=== PATIENT | male | born 1940 | race Caucasian/White ===

== ENCOUNTER → 2020-10-26 12:17 | Outpatient (CLI) | payer MEDICARE, BC, SELFPAY ==
--- NOTE | 2020-10-26 12:47 | DI.CT.S_ITS ---
PROCEDURE: CT LUMBAR SPINE WO CON INDICATIONS: Other spondylosis with radiculopathy TECHNIQUE: Noncontrast 3 mm thick sections acquired from the T12 level to the sacrum. Sagittal and coronal reformats were constructed. For radiation dose reduction, the following was used: automated exposure control. COMPARISON: None. FINDINGS: Image quality: Excellent. Bones: There is normal bony alignment. No acute vertebral body compression fractures. No suspicious lytic or blastic bony lesions. 1.9 centimeter probable bone island noted in the right iliac bone. No pars defects. T12-L1: Mild loss of disc height. Mild, diffuse disc bulge. Mild bilateral facet hypertrophy. Moderate narrowing of the central canal. Mild bilateral neural foraminal narrowing. No neural compression. L1-L2: Loss of disc height. Vacuum disc phenomenon. Mild to moderate diffuse disc bulge. Kutt-el-sybilaqd facet hypertrophy. Severe narrowing of the central canal. Severe bilateral neural foraminal narrowing with compression of the exiting L1 nerve roots. L2-L3: Loss of disc height. Moderate, diffuse disc bulge. Moderate facet hypertrophy. Severe narrowing of the central canal. Severe right and moderate left neural foraminal narrowing with compression of the exiting right L2 nerve root. L3-L4: Loss of disc height. Vacuum disc phenomenon. Moderate, diffuse disc bulge. Moderate bilateral facet hypertrophy. Severe narrowing of the central canal. Severe bilateral neural foraminal narrowing with compression of the exiting L3 nerve roots. L4-L5: Loss of disc height. Moderate, diffuse disc bulge. Mild bilateral facet hypertrophy. Moderate narrowing of the central canal. Severe bilateral neural foraminal narrowing with compression of the exiting L4 nerve roots. L5-S1: Loss of disc height. Mild, diffuse disc bulge. Mild bilateral facet hypertrophy. No central stenosis. Severe bilateral neural foraminal narrowing with compression of the exiting L5 nerve roots. Soft tissues: No retroperitoneal masses or hematomas. 3.9 centimeter infrarenal abdominal aortic aneurysm. Scattered atherosclerotic calcifications involving the visualized abdominal and pelvic vasculature. IMPRESSION: 1. Multilevel degenerative disc disease. 2. Multilevel facet arthropathy. 3. Severe L1-L2, L2-L3 and L3-L4 central canal narrowing. 4. Severe bilateral L1-L2, L3-L4, L4-L5 and L5-S1 neural foraminal narrowing. Severe right L2-L3 neural foraminal narrowing. 5. 3.9 centimeter infrarenal abdominal aortic aneurysm. Dictated by: Yaa Martinez MD, PhD on 10/26/2020 at 17:13 Approved by: Yaa Martinez MD, PhD on 10/26/2020 at 17:20
== END ==
PROVIDERS: PCP Orthopaedic Surgery Orthopaedic Surgery of the Spine; Referring Provider Orthopaedic Surgery Orthopaedic Surgery of the Spine; Visit Provider Orthopaedic Surgery Orthopaedic Surgery of the Spine
DX: M47.27 Other spondylosis with radiculopathy, lumbosacral region (principal); M47.26 Other spondylosis with radiculopathy, lumbar region; M51.17 Intervertebral disc disorders with radiculopathy, lumbosacral region; M51.16 Intervertebral disc disorders with radiculopathy, lumbar region; M48.07 Spinal stenosis, lumbosacral region; M48.061 Spinal stenosis, lumbar region without neurogenic claudication
CPT/HCPCS: 72131

== ENCOUNTER → 2021-09-26 12:38 | Outpatient (CLI) | payer MEDICARE, BC, SELFPAY ==
[2021-09-26 13:34] LABS: Add Manual Diff / Slide Review NO; Basophils Absolute Auto 0 /uL (0-100); Basophils Percent Auto 0.6 % (0-2); Eosinophils Absolute Auto 300 /uL (0-450); Eosinophils Percent Auto 4.7 % (2-4); Hematocrit 43.7 % (41-53); Hemoglobin 15.1 g/dL (13.5-17.5); Lymphocytes Absolute Auto 2100 /uL (1100-4500); Lymphocytes Percent Auto 34.8 % (25-40); Mean Corpuscular HGB Conc 34.6 % (30-36); Mean Corpuscular Hemoglobin 31.6 PG (26-34); Mean Corpuscular Volume 91.3 fL (80-100); Monocytes Absolute Auto 800 /uL (0-900); Monocytes Percent Auto 13.3 % (3-14); Neutrophils Absolute Auto 2800 /uL (1500-7000); Neutrophils Percent Auto 46.6 % (50-75); Platelet Count 208 X10^3/uL (150-400); Red Blood Cell Count 4.78 X10^6/uL (4.5-5.9); Red Cell Distribution Width 14.4 % (11.6-14.8); White Blood Cell Count 6.1 X10^3/uL (4.5-11.0)
[2021-09-26 13:41] LABS: BUN Creatinine Ratio 24.5 (6-22); Blood Urea Nitrogen 23 mg/dL (9-20); Calcium 8.7 mg/dL (8.4-10.2); Carbon Dioxide 24 mmol/L (22-32); Chloride 107 mmol/L (98-107); Estimated Glomerular Filt Rate > 60 mL/min (>60); Glucose 118 mg/dL (80-110); HEMOLYSIS < 15 (0-50); Potassium 4.6 mmol/L (3.4-5.1); Sodium 139 mmol/L (137-145)
== END ==
PROVIDERS: Referring Provider Orthopaedic Surgery Orthopaedic Surgery of the Spine; Visit Provider Orthopaedic Surgery Orthopaedic Surgery of the Spine
DX: Z01.818 Encounter for other preprocedural examination (principal); Z01.812 Encounter for preprocedural laboratory examination
CPT/HCPCS: 36415; 80048; 85025; 93005

== ENCOUNTER → 2021-10-04 12:24 | Outpatient (CLI) | payer MEDICARE, BC, SELFPAY ==
--- NOTE | 2021-10-04 | DI.CT.S_ITS ---
PROCEDURE: CT LUMBAR SPINE WO CON INDICATIONS: Spinal stenosis, lumbar region TECHNIQUE: Noncontrast 3 mm thick sections acquired from the T12 level to the sacrum. Sagittal and coronal reformats were constructed. For radiation dose reduction, the following was used: automated exposure control. COMPARISON: Located Within [facility], CT, CT LUMBAR SPINE WO CON, 10/26/2020, 12:35. FINDINGS: Image quality: Excellent. Bones: There is normal bony alignment. No acute vertebral body compression fractures. No suspicious lytic or blastic bony lesions. No pars defects. Multilevel degenerative endplate changes noted. L4-5 disc ankylosis or interbody fusion noted. T12-L1: Disc space narrowing with circumferential disc bulge and osteophytes resulting in moderate central stenosis. Moderate bilateral foraminal stenosis L1-L2: Disc space narrowing with circumferential disc bulge and hypertrophic facet joints combined with ligamentum flavum laxity to result in moderate central stenosis. Severe bilateral foraminal stenosis. L2-L3: Disc space narrowing with circumferential disc bulge, osteophytes and hypertrophic facet joints results in severe central and bilateral foraminal stenosis L3-L4: Disc space narrowing with circumferential disc bulge, hypertrophic facet joint osteophytes results in severe central stenosis. Severe bilateral foraminal stenosis L4-L5: Disc space narrowing with possible ankylosis present. Hypertrophic facet joints combined result in moderate central stenosis. Severe bilateral foraminal stenosis L5-S1: Disc space narrowing with circumferential disc bulge and hypertrophic facet joints results in moderate central stenosis. Severe bilateral foraminal stenosis. Soft tissues: No retroperitoneal masses or hematomas. Infrarenal abdominal aortic aneurysm now measures 4.1 cm in diameter IMPRESSION: 1. Multilevel degenerative disc disease and arthropathy results in varying degrees of central and foraminal stenosis including severe central and bilateral foraminal stenosis at L1-2, L2-3 and L3-4, similar prior 2. Infrarenal abdominal aortic aneurysm, slightly larger than the prior exam Approved by: Jeremy Hernandez M.D. on 10/04/2021 at 14:17
== END ==
PROVIDERS: Referring Provider Orthopaedic Surgery Orthopaedic Surgery of the Spine; Visit Provider Orthopaedic Surgery Orthopaedic Surgery of the Spine
DX: M48.061 Spinal stenosis, lumbar region without neurogenic claudication (principal); M51.36 Other intervertebral disc degeneration, lumbar region; M47.816 Spondylosis without myelopathy or radiculopathy, lumbar region; I71.4 Abdominal aortic aneurysm, without rupture
CPT/HCPCS: 72131

== ENCOUNTER 2022-07-23 05:50 | Inpatient (IN) | payer MEDICARE, OTHER, SELFPAY ==
[2022-07-16 08:07] VITALS: BMI 41.1
[2022-07-23] VITALS (26 sets, daily range): BP systolic 90–159; BP diastolic 49–82; PULSE 76–97; RESP 12–23; TEMP 36–36.9; O2SAT 92–98; BMI 41.1
[2022-07-23] MEDS: LACTATED RINGERS 1,000 ML 42 ML IV ×3 (07:12→12:42)
[2022-07-23] MEDS: PREGABALIN 75 MG CAPSULE PO (07:17)
[2022-07-23] MEDS: ACETAMINOPHEN IV 1,000 MG/100 ML VIAL 400 MG IV (07:17)
[2022-07-23 07:20] LABS: COVID19 - ADMIT (NP swab/PCR) Negative (Negative)
--- NOTE | 2022-07-23 07:46 | PM.OP.1 ---
Operative Date/Time/Diagnoses Date of procedure: 07/23/22 Time of procedure: 07:40 Pre-op diagnosis: 1. 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 Lumbar spondylosis with radiculopathy 3. Morbid obesity Post-op diagnosis: same Procedure & Clinicians Procedure: 1. L2-3, L3-4 Postero-lateral and posterior interbody fusion 2. L2-3, L3-4 interbody cage placement 3. L1-2, L2-3, L3-4 decompressive laminectomy with bilateral facetecomies 4. L1-2, L2-3, L3-4 Posterior segmental instrumentation 5. [place] of bone marrow from iliac crest 6. Utilization of microsurgical technique and operating microscope 7. Utilization of robotic assisted navigation Same procedure as scheduled: Yes Indications: Patient has been having chronic back pain and worsening lumbar radiculopathy and symptoms of neurogenic claudication. Patient failed multiple conservative management with worsening pain weakness and numbness in his lower extremity. Patient has been having difficulty performing activity of daily living. After discussing risks benefits of treatment options, patient elected proceed with surgery. Surgeon: Carmen Espino Arts Therapist: Horace Manzo Click Yes if Unassisted: No Anesthesia Type: General Operative Notes Closure Type: primary Specimen(s): none sent Prosthetic devices, grafts, tissues, transplants, or devices: Globus CREO MIS screws, Rise cages Applied: catheter Estimated Blood Loss (mL): 400 Blood products transfused: none Procedure in detail: Patient was seen in the preoperative area. Risks and benefits of the surgery was discussed with the patient. Informed consent was obtained from the patient and placed in the chart. Surgical site was marked. Patient was taken to the operative room. General anesthesia was administered. Prophylactic antibiotic was given to the patient less than 30 min before the incision was made. Patient was placed into a prone position on the Carlos table. Patient's back was then prepped and draped in the sterile fashion. Time-out was performed at this time. After patient was prepped and draped, patient's PSIS was palpated and marked bilaterally. Small 1 cm incision was made over the PSIS for placement of the reference probes. Two trocar was placed into the PSIS 1 on each side. The reference probe was attached to the trocar of the reference apparatus. At this time the C-arm imaging was used to confirm AP and lateral of L1, L2, L3, L4 vertebrae and merged the C-arm imaging using the [employer] robotic navigation system with the CT of the lumbar spine. After successful merging was completed and confirmed, skin marker was used to garrett out the skin incision using the [employer] robotic arm. Bilateral incision was made at this time. Pre templated trajectory was used and guided using the [employer] robotic navigation system for bilateral L1, L2, L3, L4 pedicle screw placement. This was done by using the robotic arm to guide the high-speed bur to make a cortical entry point. Next a drill was placed also using the robotic arm and guided using the navigation system drilling partially through bilateral L1, L2, L3, L4 pedicles. Next, L1, L2, L3, L4 pedicle screws it was pre templated and measured was placed onto the power non cdl driver and inserted into the pedicles bilaterally. After all 8 screws were placed C-arm imaging was taken of both AP and lateral to confirm the placement. Excellent placement of the screws were confirmed and a matched precisely with the pre planned screw placement using the navigation system. MARs retractor was inserted using [employer] guidence. Globus MARS retractors was placed inside the incision and docked onto the L1, L2, L3 lamina. Using microsurgical technique and operating microscope, a L1, L2, L3 laminectomy and L1-2, L2-3, L3-4 facetectomy was performed using a Kerrison rongeur. Patient was found have severe lateral recess and neural foramen stenosis which was fully decompressed after the laminectomy facetectomy. More than 75% of the facets were removed during the process of decompression rendering L1-2, L2-3, L3-4 level grossly unstable and required a fusion procedure at the same time. The disc space at L1-2, L2-3, L3-4 was identified, and a total diskectomy was performed at L2-3, L3-4 level. The endplates were decorticated using a rasp and shaver. The total diskectomy and decortication was performed at L2-3, L3-4 level in order to to accomplish a L2-3, L3-4 interbody fusion. The local bone from the laminectomy and facetectomy was saved for local bone grafting. After the total diskectomy and decortication was completed, Trifecta bone graft material was combined with local bone that was harvested earlier. At this time, a separate skin is incision was made over the iliac crest. A Jamshidi needle was inserted into the iliac crest through a separate skin incision. 5 cc of bone marrow aspiration was obtained through the separate skin incision using a Jamshidi needle from the iliac crest. The bone marrow aspiration was combined with local bone and the Trifecta bone grafting material. The bone grafting material was placed into the L2-3, L3-4 interbody space along with expandable cages. One cage each was inserted into the L2-3 L3-4 interbody space along with bone graft material. The cage was expanded to its maximum height using the torque limiting screwdriver. The disc preparation as well as the cage insertion were also performed under navigation guidance. After the cage was placed, AP and lateral C-arm imaging was taken to confirm placement of the cage and excellent position was confirmed. Globus MARS retractor was inserted and docked onto the L1-2, L2-3, L3-4 posterolateral gutter on the right side. Using the power drill, posterior-lateral decortication was performed at L1-2, L2-3, L3-4 level until bleeding cortical bone was identified. The remaining bone grafting material was placed into the L1-2, L2-3, L3-4 posterior lateral gutter he order to accomplish posterolateral fusion at the L1-2, L2-3, L3-4 level. At this time the tulips were attached to the L1, L2, L3, L4 pedicle screw shanks. After measuring the length of the rods, they were inserted into the tulips of the pedicle screws and locked in place using locking caps and torque limiting screwdriver bilaterally. Total 8 caps and 2 titanium rods was used in order to complete the posterior instrumentation construct. After all the hardware was placed, and confirmed with AP and lateral C-arm imaging, the wound was then irrigated with sterile normal saline and packed with Ray-Yonathan gauze for 3 min to accomplish hemostasis. After the gauze was removed the deep fascia was closed with #1 Vicryl suture. The subcutaneous layer was closed with 2-0 Vicryl. The skin was closed with skin crystal. Patient tolerated the procedure well. There were no complications. Neuro monitoring system was used to monitor patient's neurologic status throughout entire procedure. There was no disturbance of the neural monitoring signals throughout the case. Complications: none Post-operative Condition: stable Disposition: PACU Plan for aftercare: Admit to inpatient hospital
--- NOTE | 2022-07-23 07:46 | PM.PREOP ---
Pre-operative Note COVID-19 COVID-19 status: Negative Result date/Date tested (Pos, Neg/Pending): 07/22/22 Criteria for continued procedure: Expected advancement of disease process, Possibility delay results in more complex future surgery or treatment, Increased loss of function, Continuing or worsening of significant or severe pain, Deterioration of the patient's condition or overall health and Delay expected to result in less-positive ultimate med/surg outcome Interval Note History & Physical reviewed/Exam performed by Physician: Yes Changes to H&P: No
[2022-07-23] MEDS: CEFAZOLIN 2 GM/100 ML PREMIX 100 ML IV ×3 (07:51→20:03)
--- NOTE | 2022-07-23 08:32 | SUR.OPER ---
Prone on spine table, head in foam head support, padded chest and pelvic supports, gel pad at knees, lower legs supported by pillows; nipples, genitalia and toes free of pressure, arms secured on foam padded arm boards at <90 degrees abduction. Tape over blanket at thigh secured to table. Pt positioned per direction and supervision of Dr Espino.
[2022-07-23] MEDS: BUPIVACAINE LIPOSOME 266 MG/20 ML VIAL INJ (08:38)
[2022-07-23] MEDS: BUPIVACAINE 0.25% (PF) 30 ML, EPINEPHrine 0.3 MG INJ (08:38)
--- NOTE | 2022-07-23 11:30 | DI.RAD.S_ITS ---
PROCEDURE: XR LUMBAR SPINE 2-3V INDICATIONS: L2-3, L3-4 TLIF TECHNIQUE: 2 views of the lumbar spine were acquired. COMPARISON: [facility], CT, CT LUMBAR SPINE WO [facility], 10/04/2021, 12:34. FINDINGS: Bones: 2 submitted intraoperative C-arm images demonstrates posterior fusion at the L2-L3 and L4-L5 level with hardware in expected position. Intervertebral spacers have been placed at the L3-L4 and L4-L5 levels. Soft tissues: Overlying bowel gas pattern is normal. No suspicious soft tissue calcifications. IMPRESSION: Intraoperative images demonstrates posterior/interbody fusion at the L3-L2-L3 and L3-L4 levels with spacers also placed at the L2-3 and L3-L4 levels. Dictated by: Napoleon Pate RR Interpreted: Senthil Dowell MD on 07/23/2022 at 12:55 Transcribed by: KELLY on 07/23/2022 at 12:58 Approved by: Dylon Dowell M.D. on 07/23/2022 at 16:51
[2022-07-23] MEDS: SODIUM CHLORIDE 0.9% 1,000 ML 100 ML IV (15:05)
[2022-07-23] MEDS: OXYCODONE IR 5 MG TABLET 10 MG PO ×2 (16:43→20:00)
[2022-07-23] MEDS: hydrOXYzine pamoate 25 MG CAPSULE PO ×2 (16:43→21:33)
[2022-07-23] MEDS: DOCUSATE 100 MG CAPSULE PO (20:13)
[2022-07-23] MEDS: SENNOSIDES 8.6 MG TABLET 17.2 MG PO (20:13)
[2022-07-24] VITALS: BP 129/83; PULSE 90; RESP 21; TEMP 36.8; O2SAT 93
[2022-07-24] MEDS: SODIUM CHLORIDE 0.9% 1,000 ML 100 ML IV (00:43)
[2022-07-24] MEDS: CEFAZOLIN 2 GM/100 ML PREMIX 100 ML IV (03:56)
[2022-07-24 04:00] VITALS: BP 137/78; PULSE 89; RESP 19; TEMP 36.6; O2SAT 95
[2022-07-24 05:10] LABS: Hematocrit 36.3 % (41-53); Hemoglobin 12.2 g/dL (13.5-17.5)
--- NOTE | 2022-07-24 07:34 | P.PN_ITS ---
Subjective Subjective Date Patient Seen: 07/24/22 Time Patient Seen: 07:34 Interval history: Patient is complaining of pain from his buttocks to his toes, right equal to left. He notes this is his baseline and is unchanged from surgery. Otherwise he rates his back pain as moderate this morning. He is not gotten up with physical therapy. His is at bedside. No nausea or vomiting. Exam Vital Signs (past 8 hours): - 07/24/22 00:00 07/24/22 04:00 07/24/22 04:00 Temperature 98.2 F 97.9 F Pulse Rate 90 89 Respiratory Rate 21 19 Blood Pressure 129/83 137/78 Pulse Oximetry 93 95 Oxygen Delivery Method Nasal Cannula Oxygen Flow Rate 2 2 Fraction of Inspired Oxygen 28 Fraction of Inspired Oxygen 28 SaO2/FiO2 Ratio 461 Oxygen Delivery Method Nasal Cannula Oxygen Flow Rate 2 Narrative Exam Narrative: Pleasant 81-year-old male, resting comfortably in bed, no acute distress. Lumbar dressing demonstrates serosanguenous saturation. No surrounding erythema, induration, or quinn pus. Bilateral lower extremities: motor function is grossly intact, sensation is grossly intact to light touch, calves are soft and nont betsy to palpation. Objective Labs 07/24/22 04:24 Labs: Laboratory Results - last 24 hr 07/24/22 04:24 Hgb 12.2 L Hct 36.3 L PFSH Medical History Chronic sinus infection Depression Dyslipidemia Easy bruisability Elevated PSA History of COVID-19 (03/2022) Impaired fasting glucose Kidney stones KATALINA on CPAP Osteoarthritis PAD (peripheral artery disease) Spinal stenosis, lumbar region with neurogenic claudication Surgical History History of nasal surgery History of surgery (~2007) Social History household members: spouse Smoking Status: Former smoker alcohol intake: current Assessment & Plan Post-op Postoperative Procedures: Procedures Operation Date: 07/23/22 07:45 Actual Procedure Side Surgeon p L1-2, L2-3, L3-4 TlIF w/ posterior instrumentation - Robot Not Applicable Keenan Espino MD Postoperative day: 1 Postoperative status: doing well Postoperative status narrative: -stable status post L1-2, L2-3, L3-4 TLIF with posterior instrumentation, robot assisted Postoperative plan: routine post-op care Postoperative plan narrative: -mobilize with PT/OT. WBAT with front wheeled walker or cane. No bending, lifting, or twisting x6 weeks -continue with multimodal pain mangement. Tylenol scheduled. -d/c urinary catheter once mobilizing. -change dressing today, please contact me if any active signs of drainage -disposition: likely home in 1-2 days, pending PT Quality VTE Deep Vein Thrombosis/Pulmonary Embolism Present on Admission: No
[2022-07-24] MEDS: CITALOPRAM 10 MG TABLET 20 MG PO (08:10)
[2022-07-24] MEDS: OXYCODONE IR 5 MG TABLET 10 MG PO ×3 (08:10→21:22)
[2022-07-24] MEDS: DOCUSATE 100 MG CAPSULE PO ×2 (08:10→19:57)
[2022-07-24] MEDS: hydrOXYzine pamoate 25 MG CAPSULE PO ×3 (08:10→21:46)
[2022-07-24 08:30] VITALS: BP 116/51; PULSE 82; RESP 17; TEMP 36.8; O2SAT 94
[2022-07-24] MEDS: ACETAMINOPHEN 325 MG TABLET 650 MG PO ×3 (09:04→19:56)
--- NOTE | 2022-07-24 10:15 | PT-OP ANOTE ---
Attempted PT in AM. Pt. refused PT after several attempts stating he just started to get some sleep. Pt agreeable to get OOB in afternoon.
--- NOTE | 2022-07-24 11:40 | OT.IP.EVAL ---
Current Diagnoses Ankylosing spondylitis lumbar region (07/23/22) Spinal stenosis, lumbar region with neurogenic claudication (07/23/22) Surgery Performed Operation Date: 07/23/22 07:45 Actual Procedures p L1-2, L2-3, L3-4 TlIF w/ posterior instrumentation - Robot(Not Applicable) - Carmen Espino MD Past Medical History (Last Reviewed 07/24/22 @ 07:37 by Vandana Ravi PA-C) Chronic sinus infection Depression Dyslipidemia Easy bruisability Elevated PSA History of COVID-19 (03/2022) Impaired fasting glucose Kidney stones KATALINA on CPAP Osteoarthritis PAD (peripheral artery disease) Spinal stenosis, lumbar region with neurogenic claudication Surgical History (Last Reviewed 07/24/22 @ 07:37 by Vandana Ravi PA-C) History of nasal surgery History of surgery (~2007) Occupational Therapy Inpatient Evaluation/Re-Eval M1 PT/OT-IP Prior Functional Status Start: 07/24/22 13:40 Freq: NEEDED Status: Active Protocol: Document 07/24/22 11:40 [facility] (Rec: 07/24/22 14:01 [facility] [id number]) Medical Review Prior Functional Status Communication independent Mobility and Gait Pt did not use a device but states was just limited to walking 50ft at a time. Activities of Daily Living and IADL's Pt states needing assist for socks and shoes. Social History Household Members spouse Living Arrangements House Number of Floors (Floors) One Floor Number of Stairs To Enter/Railing? 3 steps with left rail to get into the house. There are 3 steps to get down to the guest house. Home Environment Standard Height Toilet,Walk in Shower Home Equipment Front Wheel Walker M2 OT-IP Current Condition Start: 07/24/22 13:40 Freq: Status: Active Protocol: Document 07/24/22 11:40 [facility] (Rec: 07/24/22 14:01 [facility] [id number]) Occupational Therapy Current Condition Current Condition Evaluation Date 07/24/22 Treatment Diagnosis S/p L1-2, L2-3, L3-4 TLIF with posterior inst-Robot Diagnosis Onset Date 07/23/22 M3 OT- IP Subjective and Pain Start: 07/24/22 13:40 Freq: Status: Active Protocol: Document 07/24/22 11:40 [facility] (Rec: 07/24/22 14:01 [facility] [id number]) OT- Subjective Occupational Therapy Visit Type Type Initial Evaluation Visit Start Time 11:40 Visit Stop Time 12:15 Total Visit Minutes 35 Occupational Therapy Visit Comments Patient Comments Pt agreed to get up, pt's in the room in addition to pt 's friend. Patient/Caregiver Goals To go home. OT Pain Assessment Pain When Pain Assessed At Rest Pain Present Pain Present Pain Reported Location Lower Back Intensity 1 Scale Used Numeric (0 - 10) M4 OT- IP ADL's Start: 07/24/22 13:40 Freq: Status: Active Protocol: Document 07/24/22 11:40 [facility] (Rec: 07/24/22 14:01 [facility] [id number]) OT LIB-Odvl-Bnddbtd Comments OT Self-Feeding Comments Not at meal time. OT ADL-Grooming Comments OT Grooming Comments Pt not wanting to do at this time. OT ADL-Oral Care Comments Oral Care Comments Pt wanting to eat lunch first. OT ADL-Dressing General Eval Lower Body Dressing Ability Maximum Assistance Areas Needing Assistance Shoes Comments OT Dressing Comments Able to practice and go over LB dressing needs for socks with core analysis operator and sock aid. Pt will benefit from getting LB dressing equipment. OT ADL-Toileting Comments OT Toileting Comments Pt not able to appropriately reach to wipe at this time and would benefit from a bidet, toilet paper aid or assist. OT ADL-Bathing Comments OT Bathing Comments Pt will benefit from a shower chair. M5 OT- IP IADL's Start: 07/24/22 13:40 Freq: Status: Active Protocol: Document 07/24/22 11:40 [facility] (Rec: 07/24/22 14:01 [facility] [id number]) OT-Instrumental Activities of Daily Living Deficits IADL Deficits Identified Deficits Home Safety Awareness Awareness of Need for Assistance at Home Good Awareness Ability to Problem Solve Emergency Able to Problem Solve Situations Home Safety Comments Pt is aware that he needs assist however is impulsive and tends to want to do things on his own. At this time would be best for pt's to provide supervision for safety. Furnace Loader Furnace Loader Caregiver Provides Assist M6 OT- IP Functional Cognition Start: 07/24/22 13:40 Freq: Status: Active Protocol: Document 07/24/22 11:40 [facility] (Rec: 07/24/22 14:01 [facility] [id number]) Cognitive Factors Limiting Selfcare Function Cognitive Ability Level of Alertness Alert Patient Orientation Name,Place,Situation Attention Span Ability Capable of Focused Attention, Capable of Sustained Attention Ability to Follow Commands Able to Follow One Step Commands Memory Description No Deficits Noted Safety Awareness Decreased Ability to Apply Precautions,Underestimates Need for Assistance Cognitive Comments Cognitive Assessment Comments Pt able to follow commands but needing vc to help incorporate his back precautions during ADl and mobility needs. Pt is a bit impulsive and needing cues to slow down, use the FWW , take his time. M7 OT- IP Mobility and Balance Start: 07/24/22 13:40 Freq: Status: Active Protocol: Document 07/24/22 11:40 [facility] (Rec: 07/24/22 14:01 [facility] [id number]) OT- Bed Mobility Assessment Supine to Sit Supine to Sit Assist Minimal Assistance Sit to Supine Sit to Supine Assist Minimal Assistance OT-Transfer Assessment Sit to and From Stand Sit to and from Stand Contact Guard Assistance Transfers Transfer Ability Contact Guard Assistance Technique Transfer Destination Bed,Chair Transfer Technique Stand Step Pivot Devices Transfer Assistive Devices Gait Belt,Front Wheeled Walker Comments Mobility Comments SONU to help get his feet into the bed and back out. Pt may benefit from a bed rail or having his to hold the FWW in place so pt able to get upright easier. Also suggested pt may benefit from sleeping in a recliner initially. OT- Balance Assessment Sitting Balance and Reactions Static Sitting Balance Ability Good Dynamic Sitting Balance Ability Fair Standing Balance and Reactions Static Standing Balance Ability Good Dynamic Standing Balance Ability Fair M9 OT- IP Assessment and Plan Start: 07/24/22 13:40 Freq: Status: Active Protocol: Document 07/24/22 11:40 [facility] (Rec: 07/24/22 14:01 [facility] [id number]) OT Summary Assessment and Plan Potential Rehabilitation Potential Good Analytic Complexity at Evaluation Low Summary OT Impairments Balance,Functional Mobility, Self-Feeding,Grooming,Dressing ,Toileting,Bathing,Toilet Transfers,Shower Transfers Progress Towards Goals Slow Progress due to Pain Assessment Summary Pt Low complexity and main barriers are steps, needing cues to slow down and follow his back precautions. Pt will benefit from LB dressing equipment, toilet paper aid/ bidet, and to assist with bed mobility needs and provide vc for safety as pt is a bit impulsive and set in his ways. Pt to go home with assist. Goals Self-Feeding Goal Independent Grooming Goal Independent Dressing Goal Minimal Assistance Toileting Goal Minimal Assistance Bathing Goal Minimal Assistance Toilet Transfer Goal Independent Shower Transfer Goal Contact Guard Assistance Days to Meet Goals 5 Frequency of Treatment Frequency Of Treatment Once a Day Treatment Plan OT Treatment Plan ADL Training,Functional Mobility,Patient/Family Education,Discharge Planning Other Treatment Recommendations and Next caregiver training Treatment Focus Discharge Recommendations OT Discharge Recommendations Home with Assistance,Home Health Home Equipment Needs shower chair, LB dressing equipment Transportation Needs at Discharge Private Vehicle
--- NOTE | 2022-07-24 12:16 | CM.DANOTE ---
Addendum entered by MAGDY Cash 07/25/22 13:00: ADD: PT recommending SNF 07.25.22 Original Note: Patient is a 81 yo male who was admitted on 07/23/22 for TLIF. Pt has MCR and PRE DIM for insurance and his PCP is not listed. EMR was reviewed. Per Ortho, pt tolerated procedure well and to work with PT/OT today and likely d/c in 1-2 days. Per PT, pt declined this morning as he was tired. Will try back this afternoon. Per OT, pt actually ambulated well but needed a little assist with bed mobility. Feel pt likely can d/c home with spouse assist but will see how pt does with PT. SW met bedside with pt and explained role and pt somewhat SLEETMUTE but confirms he lives in [place] on [address] with his and both are active and independent at baseline. Pt denies any DME for ambulation and states he still drives. Pt's spouse is his DPOA but he has adult children and 14 grandchildren. Pt denies any hx of HH or SNF but states his spouse recently had shoulder surgery and has been attending outpt PT in [place] and pt plans to go to the same place when cleared to work with PT. Pt does not anticipate any needs at d/c and spouse will be bedside again later today and can provide transport at d/c. Plan: SW to follow for further PT/OT towards confirming safe d/c home with spouse assist and outpt PT and any further identified needs. MAGDY Cary Discharge Planning/Care Management CM Discharge Assessment Start: 07/24/22 12:12 Freq: Status: Active Protocol: Document 07/24/22 12:12 [facility] (Rec: 07/24/22 12:16 [id number]) Discharge Planning Assessment Assigned Talent Buyer MAGDY Pavon DPOA/Assigned Designee Name spouse Nathalie Contact Information [phone] Advance Directives? No Advance Directives on File No History Provided By Patient,Medical Record Has Patient been admitted in last 30 No days? Prior Living Arrangements House Household Members spouse Type of transporation used prior to Drives own vehicle admit Independent with ADL's Yes Is patient alert and oriented? Yes Caregiver for Another No Community Services used prior to Physical Therapy admission: Patient/Family Preference Home with Home Health,OP PT Therapy Comment HH vs outpt pending PT/OT eval Barriers to Discharge No Discharge Plan Home Community Services Physical Therapy Transportation Arrangement Spouse plans to provide transport at d/c if safe for home Additional Comment Pending PT/OT eval and recommmendations Whiteboard Updated in Patient Room with Yes name and ext. # of Talent Buyer Review Status In Process Please Provide Date Initial DC 07/24/22 Assessment Was Performed Next Review Type Continued Stay Review Pre-Anesthesia Assessment Start: 07/16/22 08:07 Freq: Status: Active Protocol: Document 07/16/22 08:07 [facility] (Rec: 07/16/22 09:36 [facility] [id number]) Pre-Anesthesia Assessment PAC Comment Pt denies dementia, but appeared to have memory issues during PAC phone assess. Would benefit from having in pre-op area. Preferred Name Jeremy Patient Information Reviewed Via Phone Assessment Assessment Completed With Patient Comment Labs/EKG done in [place] per pt, not here Primary Care Provider Bradford Lyle Comment PCP pre-op visit 03/07/22, clearance form 03/26/22 scanned Medical Clearance Received Yes Seen Specialist in Last 12 Months Yes Specialist Seen Orthopedist Primary Language Kazakh [employer]opharmaceutical Rep Required No Height 160.02 cm Weight 105.233 kg Body Mass Index (BMI) 41.1 Hearing Ability Normal Visual Assist Glasses Dentition Type Teeth, Natural Present Barriers to Learning Age related,Memory Hx Anesthesia Reactions No Hx Family Anesthesia Reaction No Hx Malignant Hyperthermia No Hx Blood Transfusions No Anesthesia Review Requested Yes: 2 prior reviews completed , faxed to SNO-scanned in alcohol intake current alcohol intake frequency 0-2 drinks per day Smoking Status Former smoker how long ago did patient quit smoking Quit 30+ years ago Substance Use Type does not use Pain Present Pain Reported Musculoskeletal Symptoms Abnormal Gait,Back Pain, Difficulty Walking,Muscle Weakness,Numbness,Radiating Pain into Limb,Tingling History of Falling (Recent or History of No ) Patient is completely paralyzed or No completely immobile Mental Status Oriented to own ability Is patient on oxygen? No Does patient have LLANOS/SOB No Hx Sleep Apnea Yes CPAP/BIPAP use prescribed and used routinely Will Bring CPAP/BIPAP DOS Yes Currently Taking a Beta Kp No Can You Climb a Flight of Stairs Without Yes SOB Hx Chest Pain No Hx SOB No Hx Syncope or Dizziness No Anti-Coagulant Therapy Yes: ASA 325mg-pt will check w /pcp on when to hold Has a Pot Fisher No Cardiac Testing No Hx Pacemaker/ICD No Pacemaker Rep Required? No Cardiac Clearance Received Not Applicable Diet Type At Home Regular Dysphagia No Gastrointestinal Symptoms None Chronic UTI No Bladder Pattern Nocturia Urinary Catheter Present No Hx Urinary Self Catheterization No Diabetes No Hx Drug Resistant Organism No Presence of External or Internal Medical Yes: Jose Raul leg stents for PAD, Devices CPAP Have you had any close contact with No someone diagnosed with COVID-19? Received a COVID vaccine? Yes Received all doses? No Marital Status Lives With spouse Current Living Arrangements House Number of Floors (Floors) One Floor Support System Spouse Does the Patient Have Assistance After Yes Surgery Patient Discharge Plan Description Return Home Comment Pt advised 2 day length of stay per surgeon Feels Safe in Current Environment Yes Been Physically Hurt or Threatened By a No Person in Current Environment Do you have thoughts of harming yourself None or others? Are you currently considering suicide? No Do you have a plan to hurt yourself or No Plan others? Do You Have Any Spiritual Beliefs That No May Affect Your HC Choices? Do You Have Any Cultural Practices That No May Affect Your HC Choices? Comment Restoration Who Can We Speak to About Patient's Care Family, friends Identifying Code for Release of Patient Declines to issue Information Health Care Proxy/Next of Kin Nathalie () Health Care Proxy Emergency Contact Name Nathalie () Emergency Contact Advance Directives? No Power of Truck And Transport Mechanic No PAC Instructions Bring CPAP/BIPAP,Durable medical equipment,Medications to take/avoid,Nasal antibiotic ,No ETOH/petroleum product on skin DOS,NPO,Pre-surgical wash ,Sensory aids,Sturdy shoes/ comfortable clothes,Do not bring valuables and remove jewelry
[2022-07-24] MEDS: OXYCODONE IR 5 MG TABLET PO (12:50)
[2022-07-24 13:05] VITALS: BP 107/54; PULSE 81; RESP 17; TEMP 37; O2SAT 94
--- NOTE | 2022-07-24 15:37 | PT.IIE ---
Current Diagnoses Ankylosing spondylitis lumbar region (07/23/22) Spinal stenosis, lumbar region with neurogenic claudication (07/23/22) Surgery Performed Operation Date: 07/23/22 07:45 Actual Procedures p L1-2, L2-3, L3-4 TlIF w/ posterior instrumentation - Robot(Not Applicable) - Carmen Espino MD Surgical History (Last Reviewed 07/24/22 @ 07:37 by Vandana Ravi PA-C) History of nasal surgery History of surgery (~2007) Medical History (Last Reviewed 07/24/22 @ 07:37 by Vandana Ravi PA-C) Chronic sinus infection Depression Dyslipidemia Easy bruisability Elevated PSA History of COVID-19 (03/2022) Impaired fasting glucose Kidney stones KATALINA on CPAP Osteoarthritis PAD (peripheral artery disease) Spinal stenosis, lumbar region with neurogenic claudication Physical Therapy Inpatient Evaluation/Re-Eval M1 PT/OT-IP Prior Functional Status Start: 07/24/22 13:40 Freq: NEEDED Status: Active Protocol: Document 07/24/22 11:40 [facility] (Rec: 07/24/22 14:01 [facility] [id number]) Medical Review Prior Functional Status Communication independent Mobility and Gait Pt did not use a device but states was just limited to walking 50ft at a time. Activities of Daily Living and IADL's Pt states needing assist for socks and shoes. Social History Household Members spouse Living Arrangements House Number of Floors (Floors) One Floor Number of Stairs To Enter/Railing? 3 steps with left rail to get into the house. There are 3 steps to get down to the guest house. Home Environment Standard Height Toilet,Walk in Shower Home Equipment Front Wheel Walker M1 PT/OT-IP Prior Functional Status Start: 07/24/22 15:07 Freq: NEEDED Status: Active Protocol: Document 07/24/22 15:10 [facility] (Rec: 07/24/22 15:37 TH [id number]) Medical Review Prior Functional Status Medical History Reviewed Yes: PAD Communication independent Mobility and Gait Pt did not use a device but states was just limited to walking 50ft at a time. Activities of Daily Living and IADL's Pt states needing assist for socks and shoes. Social History Household Members spouse Living Arrangements House M2 PT-IP Current Condition Start: 07/24/22 15:07 Freq: NEEDED Status: Active Protocol: Document 07/24/22 15:10 [facility] (Rec: 07/24/22 15:37 TH [id number]) Physical Therapy Current Condition Current Condition Evaluation Date 07/24/22 Treatment Diagnosis s/p L1-L2, L2-L3,L4-L5 TLIF , Posterior hardware Onset Date 07/23/22 M3 PT-IP Subjective Start: 07/24/22 15:07 Freq: NEEDED Status: Active Protocol: Document 07/24/22 15:10 [facility] (Rec: 07/24/22 15:37 TH [id number]) Subjective Physical Therapy Visit Type Type Initial Evaluation Visit Start Time 01:00 Visit Stop Time 01:30 Total Visit Minutes 30 Notes Pt's present. Physical Therapy Visit Comments Patient Comments Pt sitting up in chair or a few hours prior to Rx. Patient Goals To return to PLOF Therapy Pain Assessment Pain When Pain Assessed During Mobility Pain Present Pain Present Pain Reported Location RLE Scale Used Numeric (0 - 10) Description Sharp,Shooting Pain Behaviors Facial Grimacing Pain Management Techniques Timing of Activity with Medications Lower Back Scale Used 6/10 Description Aching Pain Behaviors Facial Grimacing Pain Management Techniques Timing of Activity with Medications M4 PT-IP Mobility and Gait Start: 07/24/22 15:07 Freq: NEEDED Status: Active Protocol: Document 07/24/22 15:10 [facility] (Rec: 07/24/22 15:37 TH [id number]) PT-Transfer Assessment Sit to and From Stand Sit to and from Stand Standby Assistance Equipment Transfer Assistive Device Front Wheeled Walker Transfers Transfer Destination Chair Transfer Technique ambulated to chair Comments Mobility Comments Required cues for using UE to pus off chair rather than pull on walker Gait Assessment Gait Gait Assistance Required: Standby Assistance Distance (Feet) 75 Able to Maintain Weight Bearing Status Yes During Gait Assistive Devices Assistive Device Gait Belt,Front Wheeled Walker Gait Deviations General Gait Pattern Antalgic Factors Limiting Gait Function Factors Limiting Gait Function Decreased Activity Tolerance Comments Gait Comments Pt initially ambulated with antalgic gait however gait improved with time. Stair Climbing Assessment Comments Stair Climbing Comments Unable today due to fatigue. Will try in AM tomorrow. Pt's states there are 3 steps to descend to reach guest house where pt will be staying . PT-Balance Assessment Sitting Balance and Reactions Static Sitting Balance Ability Normal Dynamic Sitting Balance Ability Normal Standing Balance and Reactions Static Standing Balance Ability Normal Dynamic Standing Balance Ability Good M5 PT-IP Objective Assessments Start: 07/24/22 15:07 Freq: NEEDED Status: Active Protocol: Document 07/24/22 15:10 [facility] (Rec: 07/24/22 15:37 TH [id number]) Orientation Orientation/Cognition Level of Alertness Alert Orientation Name,Place,Situation Language Function Ability No Deficits Noted Safety Awareness Understands Safety Issues Memory Description No Deficits Noted Gross Range of Motion Upper Extremity ROM Assessment Within Functional Limits Lower Extremity ROM Assessment Within Functional Limits Strength Upper Extremity Strength Assessment Within Functional Limits Lower Extremity Strength Assessment Within Functional Limits M6 PT-IP Treatment Start: 07/24/22 15:07 Freq: NEEDED Status: Active Protocol: Document 07/24/22 15:10 [facility] (Rec: 07/24/22 15:37 TH [id number]) Physical Therapy Treatment Education Education Provided Precautions M7 PT-IP Assessment and Plan Start: 07/24/22 15:07 Freq: NEEDED Status: Active Protocol: Document 07/24/22 15:10 [facility] (Rec: 07/24/22 15:37 TH [id number]) PT Summary Assessment and Plan Potential Rehabilitation Potential Good Status of Condition at Evaluation Stable Summary Impairments Pain,Activity Tolerance Assessment Summary Pt presents with pain and decreased endurance post op spinal surgery. Pt will benefit from further PT to improve strength / endurance for home dc. Goals Bed Mobility Goal Contact Guard Assistance Transfer Goal Standby Assistance Gait Goal Independent Gait Distance 100+ feet with FWW Days to Meet Goals 4 Frequency of Treatment Frequency Of Treatment Twice a Day Treatment Plan Physical Therapy Treatment Plan Bed Mobility Training,Transfer Training,Gait Training, Therapeutic Exercise,Balance Retraining Precautions Lumbar Precautions Log Roll,No Twisting,Limit Bending,Lifting Restriction of 10 lbs,Gait Belt above Incisional Area Weight Bearing Status Allowed Weight Bearing Amount (enter % NA or #) (%) Discharge Recommendations PT Discharge Recommendations Home with Assistance Equipment Needed for Home Before Per they have all Discharge necessary equipment at home. Transportation Needs at Discharge Private Vehicle
[2022-07-24 17:39] VITALS: BP 118/60; PULSE 68; RESP 16; TEMP 36.6; O2SAT 96
[2022-07-24] MEDS: SENNOSIDES 8.6 MG TABLET 17.2 MG PO (19:57)
[2022-07-24 20:00] VITALS: BP 138/78; PULSE 73; RESP 19; TEMP 37.3; O2SAT 95
[2022-07-24] MEDS: HYDROMORPHONE 0.5 MG INJ IV (22:49)
[2022-07-25] MEDS: OXYCODONE IR 5 MG TABLET 10 MG PO (00:08)
[2022-07-25] MEDS: HYDROMORPHONE 0.5 MG INJ IV (03:45)
[2022-07-25 04:00] VITALS: BP 131/68; PULSE 78; RESP 19; TEMP 37; O2SAT 96
--- NOTE | 2022-07-25 07:38 | P.PN_ITS ---
Subjective Subjective Date Patient Seen: 07/25/22 Time Patient Seen: 07:38 Interval history: Patient is complaining of moderate to severe pain this morning, worse in his legs, from his buttocks down to his toes, equal bilaterally. The patient notes he has longstanding history of this, almost 3-1/2 years prior to surgery. He is definitely more uncomfortable today than he was yesterday. He reports he did well with physical therapy. His is at bedside. Exam Vital Signs (past 8 hours): - 07/25/22 04:00 Temperature 98.6 F Pulse Rate 78 Respiratory Rate 19 Blood Pressure 131/68 Pulse Oximetry 96 Oxygen Flow Rate 2 Fraction of Inspired Oxygen 28 SaO2/FiO2 Ratio 461 Oxygen Delivery Method Nasal Cannula Oxygen Flow Rate 2 Narrative Exam Narrative: 81-year-old male, mild discomfort due to pain, lying in bed. His is at be dside. Incision was not visualized due to pain with rolling over. Bilateral lower extremity: Motor functions are grossly intact, sensation is grossly intact to light touch, calves are soft and nontender to palpation. Objective Labs 07/24/22 04:24 PFSH Medical History Chronic sinus infection Depression Dyslipidemia Easy bruisability Elevated PSA History of COVID-19 (03/2022) Impaired fasting glucose Kidney stones KATALINA on CPAP Osteoarthritis PAD (peripheral artery disease) Spinal stenosis, lumbar region with neurogenic claudication Surgical History History of nasal surgery History of surgery (~2007) Social History household members: spouse Smoking Status: Former smoker alcohol intake: current Assessment & Plan Post-op Postoperative Procedures: Procedures Operation Date: 07/23/22 07:45 Actual Procedure Side Surgeon p L1-2, L2-3, L3-4 TlIF w/ posterior instrumentation - Robot Not Applicable Carmen Espino MD Postoperative day: 2 Postoperative status: marginal pain control Postoperative status narrative: -marginal pain control status post L1-2, L2-3, L3-4 TLIF with posterior instrumentation Postoperative plan narrative: -mobilize with physical therapy. Weightbearing as tolerated with front wheel walker. No bending, lifting, twisting x6 weeks. The patient has 3 steps to get into his home -continue with multimodal pain management. Dilaudid added for severe pain and gabapentin for nerve pain -Ativan added for anxiety -disposition: Home versus possible SNF in 1-2 days. Patient reports he is doing well with physical therapy, so I expect he will go home. We will need to get his pain under better control. Quality VTE Deep Vein Thrombosis/Pulmonary Embolism Present on Admission: No
[2022-07-25] MEDS: HYDROMORPHONE 2 MG TABLET PO ×3 (08:05→21:36)
[2022-07-25] MEDS: ACETAMINOPHEN 325 MG TABLET 650 MG PO ×2 (08:05→19:18)
[2022-07-25] MEDS: GABAPENTIN 300 MG CAPSULE PO ×3 (08:05→20:42)
[2022-07-25] MEDS: DOCUSATE 100 MG CAPSULE PO ×2 (08:06→20:42)
[2022-07-25] MEDS: CITALOPRAM 10 MG TABLET 20 MG PO (08:06)
--- NOTE | 2022-07-25 09:06 | PT.IPTN ---
Current Diagnoses Ankylosing spondylitis lumbar region (07/23/22) Spinal stenosis, lumbar region with neurogenic claudication (07/23/22) Surgery Performed Operation Date: 07/23/22 07:45 Actual Procedures p L1-2, L2-3, L3-4 TlIF w/ posterior instrumentation - Robot(Not Applicable) - Carmen Espino MD Physical Therapy Treatment Note M2 PT-IP Current Condition Start: 07/24/22 15:07 Freq: NEEDED Status: Active Protocol: Document 07/24/22 15:10 TH (Rec: 07/24/22 15:37 TH [id number]) Physical Therapy Current Condition Current Condition Evaluation Date 07/24/22 Treatment Diagnosis s/p L1-L2, L2-L3,L4-L5 TLIF , Posterior hardware Onset Date 07/23/22 M3 PT-IP Subjective Start: 07/24/22 15:07 Freq: NEEDED Status: Active Protocol: Document 07/25/22 08:51 TH (Rec: 07/25/22 09:06 TH [id number]) Subjective Physical Therapy Visit Type Type Treatment Note Physical Therapy Visit Comments Patient Comments Pt states that LEs have been feeling worse than before. He states RLE feels like it's going to buckle. Therapy Pain Assessment Pain When Pain Assessed During Mobility Pain Present Pain Present Pain Reported Location RLE Scale Used Numeric (0 - 10) Description Aching,Burning Pain Behaviors Facial Grimacing Pain Management Techniques Timing of Activity with Medications Lower Back Scale Used Numeric (0 - 10) Description Burning Pain Behaviors Facial Grimacing M4 PT-IP Mobility and Gait Start: 07/24/22 15:07 Freq: NEEDED Status: Active Protocol: Document 07/25/22 08:51 TH (Rec: 07/25/22 09:06 TH [id number]) PT-Bed Mobility Assessment Supine to Sit Supine to Sit Minimal Assistance Sit to Supine Sit to Supine Contact Guard Assistance Scooting Scooting to Edge of Bed Independent PT-Transfer Assessment Sit to and From Stand Sit to and from Stand Minimal Assistance Equipment Transfer Assistive Device Front Wheeled Walker Transfers Transfer Destination Chair Transfer Ability Level of Assist Minimal Assistance Gait Assessment Gait Gait Assistance Required: Contact Guard Assist Assistive Devices Assistive Device Gait Belt,Front Wheeled Walker Gait Deviations General Gait Pattern Antalgic Factors Limiting Gait Function Factors Limiting Gait Function Decreased Activity Tolerance, Pain Stair Climbing Assessment Evaluation Level of Assist On Stairs Minimal Assistance Devices Stair Climbing Assistive Devices Left Railing,Right Railing Technique/Endurance Stair Climbing Direction Descend Stair Climbing Set # Repetitions (reps) 3 Comments Stair Climbing Comments Pt had difficulty with navigating steps due to bilat. LEs pain r > l PT-Balance Assessment Sitting Balance and Reactions Static Sitting Balance Ability Normal Dynamic Sitting Balance Ability Normal Standing Balance and Reactions Static Standing Balance Ability Good Dynamic Standing Balance Ability Fair M5 PT-IP Objective Assessments Start: 07/24/22 15:07 Freq: NEEDED Status: Active Protocol: Document 07/25/22 08:51 TH (Rec: 07/25/22 09:06 TH [id number]) Orientation Orientation/Cognition Level of Alertness Alert M6 PT-IP Treatment Start: 07/24/22 15:07 Freq: NEEDED Status: Active Protocol: Document 07/24/22 15:10 TH (Rec: 07/24/22 15:37 TH [id number]) Physical Therapy Treatment Education Education Provided Precautions M7 PT-IP Assessment and Plan Start: 07/24/22 15:07 Freq: NEEDED Status: Active Protocol: Document 07/25/22 08:51 TH (Rec: 07/25/22 09:06 TH [id number]) PT Summary Assessment and Plan Goals Bed Mobility Goal Contact Guard Assistance Transfer Goal Standby Assistance Gait Goal Independent Gait Distance 100+ feet with FWW Days to Meet Goals 4 Frequency of Treatment Frequency Of Treatment Twice a Day
--- NOTE | 2022-07-25 10:35 | OT.IP.TRT ---
Current Diagnoses Ankylosing spondylitis lumbar region (07/23/22) Spinal stenosis, lumbar region with neurogenic claudication (07/23/22) Surgery Performed Operation Date: 07/23/22 07:45 Actual Procedures p L1-2, L2-3, L3-4 TlIF w/ posterior instrumentation - Robot(Not Applicable) - Carmen Espino MD Occupational Therapy Treatment Note M2 OT-IP Current Condition Start: 07/24/22 13:40 Freq: Status: Active Protocol: Document 07/24/22 11:40 [facility] (Rec: 07/24/22 14:01 [facility] [id number]) Occupational Therapy Current Condition Current Condition Evaluation Date 07/24/22 Treatment Diagnosis S/p L1-2, L2-3, L3-4 TLIF with posterior inst-Robot Diagnosis Onset Date 07/23/22 M3 OT- IP Subjective and Pain Start: 07/24/22 13:40 Freq: Status: Active Protocol: Document 07/25/22 12:17 [facility] (Rec: 07/25/22 12:29 [facility] [id number]) OT- Subjective Occupational Therapy Visit Type Type Treatment Note Visit Start Time 10:17 Visit Stop Time 10:35 Total Visit Minutes 18 Occupational Therapy Visit Comments Patient Comments Pt very sleepy and agreed to try to stand up. Patient/Caregiver Goals Pt open to going to half-way. OT Pain Assessment Pain When Pain Assessed At Rest Pain Present Pain Present Denied Pain M4 OT- IP ADL's Start: 07/24/22 13:40 Freq: Status: Active Protocol: Document 07/24/22 11:40 [facility] (Rec: 07/24/22 14:01 [facility] [id number]) OT [id number] Comments OT Self-Feeding Comments Not at meal time. OT ADL-Grooming Comments OT Grooming Comments Pt not wanting to do at this time. OT ADL-Oral Care Comments Oral Care Comments Pt wanting to eat lunch first. OT ADL-Dressing General Eval Lower Body Dressing Ability Maximum Assistance Areas Needing Assistance Shoes Comments OT Dressing Comments Able to practice and go over LB dressing needs for socks with toy painter and sock aid. Pt will benefit from getting LB dressing equipment. OT ADL-Toileting Comments OT Toileting Comments Pt not able to appropriately reach to wipe at this time and would benefit from a bidet, toilet paper aid or assist. OT ADL-Bathing Comments OT Bathing Comments Pt will benefit from a shower chair. Caregiver Provides Assist M6 OT- IP Functional Cognition Start: 07/24/22 13:40 Freq: Status: Active Protocol: Document 07/25/22 12:17 [facility] (Rec: 07/25/22 12:29 [facility] [id number]) Cognitive Factors Limiting Selfcare Function Cognitive Ability Level of Alertness Drowsy Patient Orientation Name Attention Span Ability Capable of Focused Attention, Unable to Focus Ability to Follow Commands Able to Follow One Step Commands with Increased Time, Able to Follow One Step Commands with Repetition Memory Description Short Term Impaired Safety Awareness Decreased Recall of Precautions Cognitive Comments Cognitive Assessment Comments Pt very sleepy and drowsy and needing time to wake up as initially thought that he was home. Pt not able to state his precautions and needing repeated education and then at the end of the session able to state his precautions. M7 OT- IP Mobility and Balance Start: 07/24/22 13:40 Freq: Status: Active Protocol: Document 07/25/22 12:17 [facility] (Rec: 07/25/22 12:29 [facility] [id number]) OT-Transfer Assessment Sit to and From Stand Sit to and from Stand Minimal Assistance Comments Mobility Comments BP sitting 115/47, standing 105/54, and back to sitting 111/47. Pt knees buckled a little when coming to stand. Pt states feeling tired and just wanting to sleep. Pt encouraged to eat his breakfast. Call light placed nearby and chair alarm clipped on pt. OT- Balance Assessment Sitting Balance and Reactions Static Sitting Balance Ability Good Standing Balance and Reactions Static Standing Balance Ability Fair M9 OT- IP Assessment and Plan Start: 07/24/22 13:40 Freq: Status: Active Protocol: Document 07/25/22 12:17 [facility] (Rec: 07/25/22 12:29 [facility] [id number]) OT Summary Assessment and Plan Potential Rehabilitation Potential Good Analytic Complexity at Evaluation Low Summary OT Impairments Balance,Functional Mobility, Self-Feeding,Grooming,Dressing ,Toileting,Bathing,Toilet Transfers,Shower Transfers Progress Towards Goals Slow Progress due to Pain,Slow Progress due to Medical Issues Assessment Summary Pt very drowsy today and noted buckling when coming to stand to the FWW. Pt is open to going to skilled rehab at this time. Goals Self-Feeding Goal Independent Grooming Goal Independent Dressing Goal Minimal Assistance Toileting Goal Minimal Assistance Bathing Goal Minimal Assistance Toilet Transfer Goal Independent Shower Transfer Goal Contact Guard Assistance Days to Meet Goals 10 Frequency of Treatment Frequency Of Treatment Once a Day Treatment Plan OT Treatment Plan ADL Training,Functional Mobility,Patient/Family Education,Discharge Planning Discharge Recommendations OT Discharge Recommendations SNF Rehab Transportation Needs at Discharge Wheelchair/Cabulance
[2022-07-25] MEDS: LORazepam 1 MG TABLET PO ×2 (11:22→23:41)
[2022-07-25 11:27] VITALS: BP 104/58; PULSE 77; RESP 16; TEMP 37.1; O2SAT 97
--- NOTE | 2022-07-25 12:56 | PT.IPTN ---
Addendum entered and electronically signed by Ana Dalton, IVON 07/25/22 13:29: Notified OVEN BAKER and care mgt increased assist required and recommended transfers only due to unsteady BLE/ trunk during tx today. Recommending SNF. Original Note: Current Diagnoses Ankylosing spondylitis lumbar region (07/23/22) Spinal stenosis, lumbar region with neurogenic claudication (07/23/22) Surgery Performed Operation Date: 07/23/22 07:45 Actual Procedures p L1-2, L2-3, L3-4 TlIF w/ posterior instrumentation - Robot(Not Applicable) - Carmen Espino MD Physical Therapy Treatment Note M2 PT-IP Current Condition Start: 07/24/22 15:07 Freq: NEEDED Status: Active Protocol: Document 07/25/22 12:32 SP (Rec: 07/25/22 13:29 SP [id number]) Physical Therapy Current Condition Current Condition Evaluation Date 07/24/22 Treatment Diagnosis s/p L1-L2, L2-L3,L4-L5 TLIF , Posterior hardware Onset Date 07/23/22 M3 PT-IP Subjective Start: 07/24/22 15:07 Freq: NEEDED Status: Active Protocol: Document 07/25/22 12:32 SP (Rec: 07/25/22 13:29 SP [id number]) Subjective Physical Therapy Visit Type Type Treatment Note Visit Start Time 12:32 Visit Stop Time 12:56 Total Visit Minutes 24 Number of RURAL CARRIER Visits 1 Physical Therapy Visit Comments Patient Comments Pt sleeping upright in chair when arrived, agreeable to working with therapy. Patient Goals Agreeable to going to rehab to get stronger before going home, for able to do stairs into home. Therapy Pain Assessment Pain When Pain Assessed At Rest Pain Present Pain Present Pain Reported Location Lower Back Scale Used back pain spasming Description Spasm,With Movement Pain Behaviors Calling Out,Facial Grimacing, Guarding,Moaning,Restlessness, Wincing Pain Management Techniques Distraction,Modification of Treatment,Re-positioning M4 PT-IP Mobility and Gait Start: 07/24/22 15:07 Freq: NEEDED Status: Active Protocol: Document 07/25/22 12:32 SP (Rec: 07/25/22 13:29 SP [id number]) PT-Bed Mobility Assessment Supine to Sit Supine to Sit Maximum Assistance,1 Person Assistance Sit to Supine Sit to Supine Moderate Assistance,1 Person Assistance,Bedrails Scooting Scooting to Edge of Bed Moderate Assistance PT-Transfer Assessment Sit to and From Stand Sit to and from Stand Moderate Assistance,Maximum Assistance,1 Person Assistance ,Use of Upper Extremities Equipment Transfer Assistive Device Gait Belt,Front Wheeled Walker Transfers Transfer Destination Bed,Chair Transfer Technique Stand Step Pivot, forward/ lateral step w/ FWW Transfer Ability Level of Assist Moderate Assistance,1 Person Assistance,Use of Upper Extremities Comments Mobility Comments Pt lethargic when arrived, stated feel sleepy, agreeable to PT, Scoot to EOchair CGA, STS Mod/Max A x1 w/ cues for UE push from chair arm rests then FWW with heavy /quick transition UE onto FWW, strong cues for quad fac to come to full stand due to noted unsteady B knee stability. CUed wt shift pre mobility assessment safety improved WB, forward gait w/ fww 3 ft Mod A for trunk stabililty with continued cues for knee straight, max cues pivot to sit at end EOB, support for FWW back fully and hand over hand cues for reach back slow descent sit Mod A. Brief rest, STS Mod A and lateral side step up EOB w/FWW , Mod A x1. Stand>Sit Mod A, sit>R SL Mod A for BLE into bed Heavy BUE on bed rail, called out back pain, cued TA facilitation and helped back stabilization. LR supine Mod A , Mod A center upper body in bed, self with cues BLEs and lateral pelvic scoot. Brief rest then LR L Mod A, L SL>sit Max A x1 support trunk righting and heavy BUE bed rail/on bed, Mod A trunk support and scoot to EOB due to retro lean. STS from EOB Mod A, hand over and verbal cues proper hand placement from bed to FWW, SPT bed>chair , Mod A for trunk support due to sways and BLEs unsteady. CUed reach back Mod A slow descent to sit. Pt had call light and all needs in reach with chair alarm donned due to fall risk. Pt will require SNF for progress strength and mobility functional progress. Gait Assessment Gait Gait Assistance Required: Contact Guard Assist Distance (Feet) 3 Able to Maintain Weight Bearing Status Yes During Gait Assistive Devices Assistive Device Gait Belt,Front Wheeled Walker Gait Deviations General Gait Pattern Antalgic,Decreased Stride Length,Decreased Feet Clearance,Lateral Trunk Lean, Step-to Gait,Wide Based Gait Factors Limiting Gait Function Factors Limiting Gait Function Decreased Activity Tolerance, Decreased Strength,Difficulty Following Directions,Pain,Poor Balance,Poor Safety Awareness Comments Gait Comments See mobility comments Stair Climbing Assessment Comments Stair Climbing Comments unable to maintain WB BLEs, unsteady Max A x1 for trunk stability SPT w/ FWW with required support for proper positioning. PT-Balance Assessment Sitting Balance and Reactions Static Sitting Balance Ability Fair Dynamic Sitting Balance Ability Poor Standing Balance and Reactions Static Standing Balance Ability Poor Dynamic Standing Balance Ability Poor Device Used FWW M5 PT-IP Objective Assessments Start: 07/24/22 15:07 Freq: NEEDED Status: Active Protocol: Document 07/25/22 08:51 TH (Rec: 07/25/22 09:06 TH [id number]) Orientation Orientation/Cognition Level of Alertness Alert M6 PT-IP Treatment Start: 07/24/22 15:07 Freq: NEEDED Status: Active Protocol: Document 07/25/22 12:32 SP (Rec: 07/25/22 13:29 SP [id number]) Physical Therapy Treatment Education Education Provided Precautions,Safety M7 PT-IP Assessment and Plan Start: 07/24/22 15:07 Freq: NEEDED Status: Active Protocol: Document 07/25/22 12:32 SP (Rec: 07/25/22 13:29 SP [id number]) PT Summary Assessment and Plan Potential Rehabilitation Potential Good Status of Condition at Evaluation Stable Summary Impairments Pain,ROM,Strength,Balance, Cognition,Bed Mobility, Transfers,Gait,Activity Tolerance Progress Towards Goals Slow Progress due to Pain,Slow Progress due to Activity Tolerance,Slow Progress - Other Assessment Summary Pt required increased assist with trunk stability, unsteady BLEs support for FWW repositioning this tx, very lethargic stated was premedicated. Recommending 1-2 person transfers only with nursing. REcommending SNF to progress strength and functional mobility progression. Pt has 3 stairs to enter home. Will continue to assess progress. Goals Bed Mobility Goal Contact Guard Assistance Transfer Goal Standby Assistance Gait Goal Independent Gait Distance 100+ feet with FWW Days to Meet Goals 4 Frequency of Treatment Frequency Of Treatment Twice a Day Treatment Plan Physical Therapy Treatment Plan Bed Mobility Training,Transfer Training,Gait Training, Therapeutic Exercise,Balance Retraining Other Recommendations and Next Treatment LE ROM pre mobililty, Focus transfers, gait w/ FWW, stand endurance w/FWW. Precautions Lumbar Precautions Log Roll,No Twisting,Limit Bending,Lifting Restriction of 10 lbs,Gait Belt above Incisional Area Other Precautions Pt did not recall precautions this tx. Weight Bearing Status Allowed Weight Bearing Amount (enter % NA or #) (%) Recommendations To Nursing Amount of Assist Needed 2 Person Assist Discharge Recommendations PT Discharge Recommendations SNF Rehab Equipment Needed for Home Before Per they have all Discharge necessary equipment at home. Transportation Needs at Discharge Private Vehicle,Wheelchair/ Cabulance
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
[2022-07-25] MEDS: hydrOXYzine pamoate 25 MG CAPSULE PO (16:01)
[2022-07-25 16:14] VITALS: BP 123/58; PULSE 71
[2022-07-25 16:27] VITALS: PULSE 72; RESP 20; O2SAT 91
[2022-07-25 20:00] VITALS: BP 127/58; PULSE 74; RESP 17; TEMP 37.2; O2SAT 94
[2022-07-25] MEDS: SENNOSIDES 8.6 MG TABLET 17.2 MG PO (20:42)
[2022-07-25] MEDS: SODIUM CHLORIDE 0.9% FLUSH 10 ML IV (21:37)
[2022-07-25 23:54] VITALS: BP 128/65; PULSE 66; RESP 19; TEMP 36.8; O2SAT 96
[2022-07-26] MEDS: HYDROMORPHONE 2 MG TABLET PO ×3 (01:37→07:00)
[2022-07-26] MEDS: ACETAMINOPHEN 325 MG TABLET 650 MG PO ×3 (01:37→14:00)
[2022-07-26 04:10] VITALS: BP 138/62; PULSE 73; RESP 19; TEMP 36.7; O2SAT 93
[2022-07-26] MEDS: hydrOXYzine pamoate 25 MG CAPSULE PO (04:26)
[2022-07-26] MEDS: GABAPENTIN 300 MG CAPSULE PO (08:01)
[2022-07-26] MEDS: DOCUSATE 100 MG CAPSULE PO (08:01)
[2022-07-26] MEDS: CITALOPRAM 10 MG TABLET 20 MG PO (08:01)
[2022-07-26] MEDS: SODIUM CHLORIDE 0.9% FLUSH 10 ML IV (08:02)
--- NOTE | 2022-07-26 08:40 | PT.IPTN ---
Current Diagnoses Ankylosing spondylitis lumbar region (07/23/22) Spinal stenosis, lumbar region with neurogenic claudication (07/23/22) Surgery Performed Operation Date: 07/23/22 07:45 Actual Procedures p L1-2, L2-3, L3-4 TlIF w/ posterior instrumentation - Robot(Not Applicable) - Carmen Espino MD Physical Therapy Treatment Note M2 PT-IP Current Condition Start: 07/24/22 15:07 Freq: NEEDED Status: Active Protocol: Document 07/25/22 12:32 SP (Rec: 07/25/22 13:29 SP [id number]) Physical Therapy Current Condition Current Condition Evaluation Date 07/24/22 Treatment Diagnosis s/p L1-L2, L2-L3,L4-L5 TLIF , Posterior hardware Onset Date 07/23/22 M3 PT-IP Subjective Start: 07/24/22 15:07 Freq: NEEDED Status: Active Protocol: Document 07/26/22 09:10 TS (Rec: 07/26/22 09:36 TS [id number]) Subjective Physical Therapy Visit Type Type Treatment Note Visit Start Time 08:40 Visit Stop Time 09:05 Total Visit Minutes 25 Number of CODING COMPLIANCE MANAGER Visits 2 Physical Therapy Visit Comments Patient Comments Pt found asleep in bed, slow to awaken, spouse in room. He reports his pain his feeling much better but is very tired. Patient Goals Agreeable to going to rehab to get stronger before going home, for able to do stairs into home. Therapy Pain Assessment Pain When Pain Assessed During Mobility Pain Present Pain Present Pain Reported M4 PT-IP Mobility and Gait Start: 07/24/22 15:07 Freq: NEEDED Status: Active Protocol: Document 07/26/22 09:10 TS (Rec: 07/26/22 09:36 TS [id number]) PT-Bed Mobility Assessment Supine to Sit Supine to Sit Maximum Assistance,1 Person Assistance Scooting Scooting to Edge of Bed Moderate Assistance PT-Transfer Assessment Sit to and From Stand Sit to and from Stand Moderate Assistance,1 Person Assistance Equipment Transfer Assistive Device Gait Belt,Front Wheeled Walker Comments Mobility Comments Pt conitnues to be lethargic and slow to awaken. He recalled 0/3 spinal precautions this session. Pt performed logroll requiring MaxA for uprighting trunk and LE's off EOB, provided cues for pushing through elbow and LUE. Pt scooted to EOB ModA with cues for BUE support and feet flat. He performed sit to stand x1 with ModA and cues for BUE support on bed. He requested to use toilet and ambulated ~10 to bathroom CGA. He ambulated to bed side chair ~10', he reported legs getting weak and had signs of buckling in LE's requiring Chucho. Pt performed stand to sit CGA with c ues for reaching back to arms of chair for eccentric control and maintaining precautions. Pt was left in bedside chair with call light nearby, chair alarm on, spouse in room. Gait Assessment Gait Gait Assistance Required: Contact Guard Assist,Minimum Assistance Distance (Feet) 3 Able to Maintain Weight Bearing Status Yes During Gait Assistive Devices Assistive Device Gait Belt,Front Wheeled Walker Gait Deviations General Gait Pattern Antalgic,Decreased Stride Length,Decreased Feet Clearance,Lateral Trunk Lean, Step-to Gait,Wide Based Gait Factors Limiting Gait Function Factors Limiting Gait Function Decreased Activity Tolerance, Decreased Strength,Difficulty Following Directions,Pain,Poor Balance,Poor Safety Awareness Comments Gait Comments See mobility comments. Stair Climbing Assessment Comments Stair Climbing Comments Is unsteady this morning with buckling/tremoring of LE's with ambulation in room, did not progress to stairs this session. Will attempt in afternoon if pt is less lethargic. PT-Balance Assessment Sitting Balance and Reactions Static Sitting Balance Ability Fair Dynamic Sitting Balance Ability Poor Standing Balance and Reactions Static Standing Balance Ability Poor Dynamic Standing Balance Ability Poor Device Used FWW Comments Other Balance Tests/Deviations/Treatment Pt sat EOB initally Chucho for : retrolean, progressed to SBA with BUE support. M5 PT-IP Objective Assessments Start: 07/24/22 15:07 Freq: NEEDED Status: Active Protocol: Document 07/25/22 08:51 TH (Rec: 07/25/22 09:06 TH [id number]) Orientation Orientation/Cognition Level of Alertness Alert M6 PT-IP Treatment Start: 07/24/22 15:07 Freq: NEEDED Status: Active Protocol: Document 07/26/22 09:10 TS (Rec: 07/26/22 09:36 TS [id number]) Physical Therapy Treatment Education Education Provided Precautions,Safety Other Treatments Other Treatment Performed Pt recalled 0/3 spinla precautions. M7 PT-IP Assessment and Plan Start: 07/24/22 15:07 Freq: NEEDED Status: Active Protocol: Document 07/26/22 09:10 TS (Rec: 07/26/22 09:36 TS [id number]) PT Summary Assessment and Plan Potential Rehabilitation Potential Good Status of Condition at Evaluation Evolving Summary Impairments Pain,ROM,Strength,Balance, Cognition,Bed Mobility, Transfers,Gait,Activity Tolerance Progress Towards Goals Slow Progress due to Pain,Slow Progress due to Activity Tolerance,Slow Progress - Other Assessment Summary Pt continues to require MaxA for logroll for uprighting trunk and LE's off EOB with HOB 15D. He required Chucho for sitting balance progressed to CGA with BUE support on EOB. He performed sit to stand ModA , no lob or posterior lean. He Chucho to CGA for ambulation in room for signs of buckling/ tremoring in LE's. Could not progress safely to stairs this session due to fatigue in LE' s and being lethargic. Pt continues to be very lethargic , falling asleep in chair while therspist is discussing care. PT continues to recommend SNF to improve activity tolerance, transfers and gait. Goals Bed Mobility Goal Contact Guard Assistance Transfer Goal Standby Assistance Gait Goal Independent Gait Distance 100+ feet with FWW Days to Meet Goals 4 Frequency of Treatment Frequency Of Treatment Twice a Day Treatment Plan Physical Therapy Treatment Plan Bed Mobility Training,Transfer Training,Gait Training, Therapeutic Exercise,Balance Retraining Other Recommendations and Next Treatment LE ROM pre mobililty, Focus transfers, gait w/ FWW, stand endurance w/FWW. Precautions Lumbar Precautions Log Roll,No Twisting,Limit Bending,Lifting Restriction of 10 lbs,Gait Belt above Incisional Area Other Precautions Pt did not recall precautions this tx. Weight Bearing Status Allowed Weight Bearing Amount (enter % NA or #) (%) Recommendations To Nursing Amount of Assist Needed 2 Person Assist Discharge Recommendations PT Discharge Recommendations SNF Rehab Equipment Needed for Home Before Per they have all Discharge necessary equipment at home. Transportation Needs at Discharge Private Vehicle,Wheelchair/ Cabulance
[2022-07-26 09:00] VITALS: BP 130/67; PULSE 73; RESP 17; TEMP 36.4; O2SAT 94
--- NOTE | 2022-07-26 10:16 | P.DS_ITS ---
History of Present Illness History of Present Illness Date Patient Seen: 07/26/22 Time Patient Seen: 10:16 Chief complaint: Low back pain s/p TLIF Narrative: Patient is complaining of moderate to severe low back pain. He notes that yesterday, the combination of Ativan and p.o. Dilaudid was a little too much. He had somnolence and some difficulty with ambulation. Plan is to get him to SNF, hopefully today or tomorrow. He notes his bilateral leg pain is currently at 0, however, 30 minutes ago he notes it was excruciating. Discharge Providers Provider Date of admission: 07/23/22 05:50 Discharge Date: 07/26/22 Primary care physician: Doctor Lance MD Consults: 07/23/22 15:05 Consult to Occupational Therapy Evaluate & Treat Comment: Physician Instructions: Evaluate and treat Consult to Physical Therapy Evaluate & Treat Comment: Physician Instructions: Evaluate and Treat Discharge provider: Vandana Ravi PA-C Summary Hospital Course Discharge Diagnosis: 1. 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 Lumbar spondylosis with radiculopathy 3. Morbid obesity Hospital Course: Operative Date/Time/Diagnoses Date of procedure: 07/23/22 Time of procedure: 07:40 Procedure & Clinicians Procedure: 1. L2-3, L3-4 Postero-lateral and posterior interbody fusion 2. L2-3, L3-4 interbody cage placement 3. L1-2, L2-3, L3-4 decompressive laminectomy with bilateral facetecomies 4. L1-2, L2-3, L3-4 Posterior segmental instrumentation 5. [place] of bone marrow from iliac crest 6. Utilization of microsurgical technique and operating microscope 7. Utilization of robotic assisted navigation Same procedure as scheduled: Yes Indications: Patient has been having chronic back pain and worsening lumbar radiculopathy and symptoms of neurogenic claudication. Patient failed multiple conservative management with worsening pain weakness and numbness in his lower extremity.? Patient has been having difficulty performing activity of daily living.? After discussing risks benefits of treatment options, patient elected proceed with surgery. Surgeon: Carmen Espino Grief Counsellor: Horace Manzo Click Yes if Unassisted: No Anesthesia Type: General Operative Notes Closure Type: primary Specimen(s): none sent Prosthetic devices, grafts, tissues, transplants, or devices: Globus CREO MIS screws, Rise cages Applied: catheter Estimated Blood Loss (mL): 400 Blood products transfused: none Status at Discharge Cognitive/behavioral status at discharge: at baseline, oriented Functional status at discharge: uses cane/walker Overall status at discharge: patient is progressing back to baseline Exam Vital Signs (past 8 hours): - 07/26/22 04:10 07/26/22 08:00 07/26/22 09:00 Temperature 98.1 F 97.5 F L Pulse Rate 73 73 Respiratory Rate 19 17 Blood Pressure 138/62 130/67 Pulse Oximetry 93 94 Oxygen Delivery Method Room Air Oxygen Flow Rate 0 0 Fraction of Inspired Oxygen 28 SaO2/FiO2 Ratio 461 Oxygen Delivery Method Room Air Oxygen Flow Rate 0 Narrative Exam Narrative: Pleasant 81 old male, resting comfortably in bed, no acute distress, is at bedside. Bilateral lower extremity: Motor functions are grossly intact, sensation is grossly intact to light touch, calves are soft and nontender to palpation. Objective Labs 07/24/22 04:24 PFSH Medical History Chronic sinus infection Depression Dyslipidemia Easy bruisability Elevated PSA History of COVID-19 (03/2022) Impaired fasting glucose Kidney stones KATALINA on CPAP Osteoarthritis PAD (peripheral artery disease) Spinal stenosis, lumbar region with neurogenic claudication Surgical History History of nasal surgery History of surgery (~2007) Social History household members: spouse Smoking Status: Former smoker alcohol intake: current Discharge Assessment & Plan Assessment and Plan Assessment: -marginal pain control s/p L1-2, L2-3, L3-4 TLIF with posterior instrumentation; L1-2, L2-3, L3-4 decompressive laminectomy with bilateral facetectomies -Morbid obesity, BMI 41.1 Plan of Treatment: Mobilize with PT/OT. Weightbearing as tolerated with front wheel walker or cane. No bending, lifting, twisting x6 weeks -continue with multimodal pain management. We will DC p.o. Dilaudid and instead go back to oxycodone with tramadol for breakthrough pain. Continue with gabapentin and Ativan as needed. -DC to SNF once a bed is available, hopefully today or tomorrow. The patient has regressed with physical therapy and is not safe to go home under the care of his . Discharge Plan Discharge Plan Patient Disposition: SNF Discharge orders & Medications Prescriptions: New acetaminophen 325 mg Tablet 650 mg PO Q6H MDD Max 3000 mg per day PRN (Reason: fever or pain) Qty: 90 0RF docusate sodium 100 mg Capsule 100 mg PO BID PRN (Reason: constipation) Qty: 20 0RF gabapentin [Neurontin] 300 mg Capsule 300 mg PO TID Qty: 90 0RF Rx Instructions: For nerve pain, taper off if discontinuing hydroxyzine pamoate 25 mg Capsule 25 mg PO Q4HR PRN (Reason: Muscle spasm/pain/nausea) Qty: 60 0RF lorazepam 1 mg Tablet 1 mg PO Q6-8H PRN (Reason: Anxiety) Qty: 10 0RF oxycodone 5 mg Tablet See Rx Instructions .ROUTE .COMPLEX PRN (Reason: Pain, Severe (7-10)) Qty: 42 0RF Rx Instructions: Take 1-2 tabs by mouth every 4 hours as needed for moderate to severe postop pain tramadol 50 mg Tablet 50 mg PO QID PRN (Reason: Breakthrough Pain) Qty: 20 0RF Continued citalopram 40 mg tablet 20 mg PO DAILY aspirin [Aspir-Marie] 325 mg tablet,delayed release (DR/EC) 325 mg PO DAILY Discontinued ibuprofen 200 mg Tablet 400 mg PO BEDTIME Follow up/Referrals: Carmen Espino MD [Physician] - As previously scheduled (10-14 days for postoperative visit) Doctor Lucas MD [Primary Care Provider] - Diet/Activity/Treatments Diet: Diet as Tolerated Other treatments: Dressing/Wound care: -Keep dressing in place until postoperative follow-up office visit. -Okay to shower. Keep wound out of direct water stream. Can use PressNSeal plastic wrap to protect from shower stream. No soaking or submerging until all the scabs fall off (approximately 6 weeks). -Please call the office if dressing becomes wet, soiled, or saturated. Activities: -Limit bending, lifting, twisting x6 weeks. No deep bending (more than 90 degrees) or twisting at the waist. No lifting > 20 pounds. -Walk frequently. -Weight-bearing as tolerated. Use front wheeled walker, and progress to cane when safe. -Continue with home exercises as directed by your physical therapist. -Ice your incision as needed for pain/inflammation/swelling. Protect your skin with a folded pillowcase. -Incentive Spirometer (breathing device from hospital): 5-10xs every hour while awake for the first 1-2 weeks. Follow-up: -Follow-up with your surgeon or PA in the office in 10-14 days after surgery. -Follow-up with your surgeon 6 weeks postoperatively. Call the office if you have chest pain, shortness of breath, significant swelling that will not resolve with elevating, fever over 101?, significantly worsening pain, or are concerned you might need to go to the Emergency Room. [facility]: [phone] Skin/Wound/Dressing Care Report to your healthcare provider any signs of infection, such as:: chills, fever, night sweats, unusual drainage and unusual redness [facility] Reason for rehabilitation: Post-operative therapy Rehab type: Physical therapy Visit Report/Discharge Packet Instructions: DI for Prescription Opioid Use, DI for Transforaminal Lumbar Interbody Fusion Stand Alone Forms: Patient Portal/API, Surgery Discharge Discharge Data Primary Care Provider: Miscellaneous,Doctor Quality VTE Deep Vein Thrombosis/Pulmonary Embolism Present on Admission: No
--- NOTE | 2022-07-26 11:20 | CM.DPNOTE ---
DC Note Discharge today and patient/spouse agreeable to SNF Spouse explains they live in [place] and so she wonders if [facility] has bed availability today? Placed call to [facility] and according to Kristin, r/t a COVID outbreak, they are not currently taking any admissions Updated spouse and she is agreeable to taking the available bed at [facility] today JESUS Mack, kindly coordinating this DCP to include updating staff and faxing all completed and signed DC ppk to [facility]. P/u currently scheduled for 1445 Plan: Discharge to [facility] via w/c this afternoon. PASRR completed and sent JW
--- NOTE | 2022-07-26 11:56 | PC.NURSE ---
Addendum entered by Chelsy Ravi R.N. 07/26/22 12:26: went to check on patient, occasionally raises his voice to . Assessed patient's back for itching. there is a small scratch like, offered to put band aid, refused. seemed agitated and said you are taking everything way too serious harmony, we are doing okay. Pt denied head ache, no tremors, no perspiration, no tingling numbness. He has some hallucination and seeing chairs and people. provider aware of this. Original Note: pt attempted to get out of chair, was trying to help him without calling us first. This also happened last night. I told him I will be back because I need to get another person to help me transfer him, I went back to room and was helping him get up. Chair alarm was on at all times. Today was concerned that patient seem to be foggy, explained that patient has been getting dilaudid last night for pain and he also had vistaril at 0400, vistaril might be also causing his fogginess. I will not give vistaril and dilaudid, will give tramadol if needed. Patient needs reminder to drink lots of fluids.
--- NOTE | 2022-07-26 12:08 | OT.IP.TRT ---
Current Diagnoses Ankylosing spondylitis lumbar region (07/23/22) Spinal stenosis, lumbar region with neurogenic claudication (07/23/22) Surgery Performed Operation Date: 07/23/22 07:45 Actual Procedures p L1-2, L2-3, L3-4 TlIF w/ posterior instrumentation - Robot(Not Applicable) - Carmen Espino MD Occupational Therapy Treatment Note M2 OT-IP Current Condition Start: 07/24/22 13:40 Freq: Status: Active Protocol: Document 07/24/22 11:40 [facility] (Rec: 07/24/22 14:01 [facility] [id number]) Occupational Therapy Current Condition Current Condition Evaluation Date 07/24/22 Treatment Diagnosis S/p L1-2, L2-3, L3-4 TLIF with posterior inst-Robot Diagnosis Onset Date 07/23/22 M3 OT- IP Subjective and Pain Start: 07/24/22 13:40 Freq: Status: Active Protocol: Document 07/26/22 13:08 [facility] (Rec: 07/26/22 13:16 [facility] [id number]) OT- Subjective Occupational Therapy Visit Type Type Treatment Note Visit Start Time 11:50 Visit Stop Time 12:08 Total Visit Minutes 18 Occupational Therapy Visit Comments Patient Comments Pt not wanting to get up and very drowsy and falling asleep in the chair when talking to his and friend. OT Pain Assessment Pain When Pain Assessed At Rest Pain Present Pain Present Denied Pain M4 OT- IP ADL's Start: 07/24/22 13:40 Freq: Status: Active Protocol: Document 07/24/22 11:40 [facility] (Rec: 07/24/22 14:01 [facility] [id number]) OT [id number] Comments OT Self-Feeding Comments Not at meal time. OT ADL-Grooming Comments OT Grooming Comments Pt not wanting to do at this time. OT ADL-Oral Care Comments Oral Care Comments Pt wanting to eat lunch first. OT ADL-Dressing General Eval Lower Body Dressing Ability Maximum Assistance Areas Needing Assistance Shoes Comments OT Dressing Comments Able to practice and go over LB dressing needs for socks with superintendent automotive and sock aid. Pt will benefit from getting LB dressing equipment. OT ADL-Toileting Comments OT Toileting Comments Pt not able to appropriately reach to wipe at this time and would benefit from a bidet, toilet paper aid or assist. OT ADL-Bathing Comments OT Bathing Comments Pt will benefit from a shower chair. M5 OT- IP IADL's Start: 07/24/22 13:40 Freq: Status: Active Protocol: Document 07/24/22 11:40 [facility] (Rec: 07/24/22 14:01 [facility] [id number]) OT-Instrumental Activities of Daily Living Deficits IADL Deficits Identified Deficits Home Safety Awareness Awareness of Need for Assistance at Home Good Awareness Ability to Problem Solve Emergency Able to Problem Solve Situations Home Safety Comments Pt is aware that he needs assist however is impulsive and tends to want to do things on his own. At this time would be best for pt's to provide supervision for safety. Electronic Warfare Linguist Electronic Warfare Linguist Caregiver Provides Assist M6 OT- IP Functional Cognition Start: 07/24/22 13:40 Freq: Status: Active Protocol: Document 07/26/22 13:08 [facility] (Rec: 07/26/22 13:16 [facility] [id number]) Cognitive Factors Limiting Selfcare Function Cognitive Ability Level of Alertness Drowsy Patient Orientation Name Attention Span Ability Capable of Focused Attention, Unable to Focus Ability to Follow Commands Able to Follow One Step Commands with Increased Time, Able to Follow One Step Commands with Repetition Memory Description Short Term Intact Safety Awareness Decreased Recall of Precautions Cognitive Comments Cognitive Assessment Comments Pt having difficulty to remember details when his friend was talking. Pt needing reminders for his back precautions as well. Pt did state his back was itchy and able to notify nursing. M7 OT- IP Mobility and Balance Start: 07/24/22 13:40 Freq: Status: Active Protocol: Document 07/26/22 13:08 [facility] (Rec: 07/26/22 13:16 [facility] [id number]) OT-Transfer Assessment Sit to and From Stand Sit to and from Stand Minimal Assistance Comments Mobility Comments Pt LE did not buckle and SONU to stand and able to stand for 2 minutes before having to sit back down due to fatigue. OT- Balance Assessment Sitting Balance and Reactions Static Sitting Balance Ability Good Standing Balance and Reactions Static Standing Balance Ability Good M9 OT- IP Assessment and Plan Start: 07/24/22 13:40 Freq: Status: Active Protocol: Document 07/26/22 13:08 [facility] (Rec: 07/26/22 13:16 [facility] [id number]) OT Summary Assessment and Plan Potential Rehabilitation Potential Good Analytic Complexity at Evaluation Low Summary OT Impairments Pain,Balance,Functional Mobility,Self-Feeding,Grooming ,Dressing,Toileting,Bathing, Toilet Transfers,Shower Transfers Progress Towards Goals Slow Progress due to Medical Issues,Slow Progress due to Activity Tolerance Assessment Summary Pt still drowsy and a little confused as not able to remeber the details from his friend's conversation. Pt's is worried that pt is on too much medications, notified nursing of pt's drowsiness and itchy back. Goals Self-Feeding Goal Independent Grooming Goal Independent Dressing Goal Minimal Assistance Toileting Goal Minimal Assistance Bathing Goal Minimal Assistance Toilet Transfer Goal Independent Shower Transfer Goal Contact Guard Assistance Days to Meet Goals 9 Frequency of Treatment Frequency Of Treatment Once a Day Treatment Plan OT Treatment Plan ADL Training,Functional Mobility,Patient/Family Education,Discharge Planning Discharge Recommendations OT Discharge Recommendations SNF Rehab Transportation Needs at Discharge Wheelchair/Cabulance
[2022-07-26 12:26] VITALS: BP 126/59; PULSE 77; RESP 16; TEMP 36.4; O2SAT 94
[2022-07-26] MEDS: TRAMADOL 50 MG TABLET PO (14:01)
== END 2022-07-26 15:23 | DRG 455 ==
PROVIDERS: Admitting Provider Orthopaedic Surgery Orthopaedic Surgery of the Spine; Referring Provider Orthopaedic Surgery Orthopaedic Surgery of the Spine; Visit Provider Orthopaedic Surgery Orthopaedic Surgery of the Spine
PROC: 0SG10AJ Fusion of 2 or more Lumbar Vertebral Joints with Interbody Fusion Device, Posterior Approach, Anterior Column, Open Approach (ICD-10-PCS; principal; 2022-07-23 07:45)
DX: M48.062 Spinal stenosis, lumbar region with neurogenic claudication (principal); M47.26 Other spondylosis with radiculopathy, lumbar region; M45.6 Ankylosing spondylitis lumbar region; F41.9 Anxiety disorder, unspecified; G89.18 Other acute postprocedural pain; F32.A Depression, unspecified; Z87.891 Personal history of nicotine dependence; Z20.822 Contact with and (suspected) exposure to COVID-19
CPT/HCPCS: 36415; 72100; 76000; 85014; 85018; 87635; 97116; 97161; 97165; 97530; 97535; C9803; C1713; C9290; J0131; J0171; J0330; J0690; J1100; J1170; J2405; J2704; J3010